=== PATIENT | female | born 1970 | race African-American/Black ===

== ENCOUNTER 2017-06-08 13:46 | Emergency (ER) | payer OTHER ==
--- NOTE | 2017-06-08 14:35 | ED Physician Documentation ---
PD HPI SKIN - Stated complaint Stated Complaint: R ARM PX - Chief complaint Chief Complaint: Ext Problem - History obtained from History obtained from: Patient - History of Present Illness Timing - onset: How many months ago (2) Timing - duration: Months (2had flu shot in right deltoid area end March and has had pain in the area since that time. No drainage. It has gotten worse the past week or so.) Timing - details: Gradual onset, Still present, Waxing and waning Location: RUE (lateral deltoid) Quality / character: Painful, Other (warmth). No: Discolored, Swelling, Draining Associated symptoms: Myalgias. No: Fever Contributing factors: Other (got flu shot in that spot with onset symptoms next few days and has persisted.) Similar symptoms before: Diagnosis, Has not had sx before Recently seen: Not recently seen Review of Systems Constitutional: reports: Myalgias. denies: Fever, Chills Nose: denies: Rhinorrhea / runny nose, Congestion Throat: denies: Sore throat Respiratory: denies: Cough GI: denies: Nausea, Vomiting, Diarrhea : denies: Dysuria, Frequency Endocrine: denies: Weight loss Immunocompromised: denies: Immunocompromised PD PAST MEDICAL HISTORY - Past Medical History Past Medical History: No Endocrine/Autoimmune: None - Past Surgical History Past Surgical History: No - Present Medications Home Medications: Ambulatory Orders Medication Instructions Recorded Confirmed Cephalexin [Keflex] 500 mg PO TID #21 capsule 06/08/17 Dexamethasone [Decadron] 4 mg PO DAILY #5 tablet 06/08/17 Naproxen 375 mg PO BID #20 tablet 06/08/17 Tramadol HCl 50 mg PO Q6H PRN #15 tablet 06/08/17 - Allergies Allergies/Adverse Reactions: Allergies Allergy/AdvReac Type Severity Reaction Status Date / Time No Known Drug Allergies Allergy Verified 06/08/17 13:54 - Social History Does the pt smoke?: No Smoking Status: Never smoker Does the pt drink ETOH?: No Does the pt have substance abuse?: No - Immunizations Immunizations are current?: Yes PD ED PE NORMAL - Vitals Vital signs reviewed: Yes - General General: Alert and oriented X 3, No acute distress, Well developed/nourished - Neck Neck: Supple, no meningeal sign, No adenopathy - Cardiac Cardiac: RRR, No murmur - Respiratory Respiratory: Clear bilaterally - Abdomen Abdomen: Soft, Non tender, No organomegaly - Derm Derm: Normal color, Warm and dry - Extremities Extremities: Other (right lateral deltoid with area of warmth, but no noted redness. She has some firmness underneath. Bedside U/S did not show any pocket of fluid. Local inflammation noted. ) - Neuro Neuro: Alert and oriented X 3, No motor deficit, No sensory deficit, Normal speech Results - Vitals Vitals: Oxygen O2 Source Room air PD MEDICAL DECISION MAKING - ED course Complexity details: considered differential (prolonged time of pain after injection with warmth at the area but no redness. Bedside U/S showing some focal inflammation but no fluid collection to suggest abscess. ), d/w patient Departure - Departure Disposition: 01 Home, Self Care Clinical Impression: Muscle pain Injection site reaction Qualifiers: Encounter type: initial encounter Qualified Code(s): T80.90XA - Unspecified complication following infusion and therapeutic injection, initial encounter Condition: Stable Record reviewed to determine appropriate education?: Yes Follow-Up: [facility] [Provider Group] [facility] [Provider Group] Prescriptions: Cephalexin [Keflex] 500 mg PO TID #21 capsule Dexamethasone [Decadron] 4 mg PO DAILY #5 tablet Naproxen 375 mg PO BID #20 tablet Tramadol HCl 50 mg PO Q6H PRN #15 tablet PRN Reason: Pain Comments: There is some warmth and inflammation in the site of the injection. This may be just an irritation from the vaccine. However would be concern for some infection in the area. I do not see any abscess at this time. Treat with anti- inflammatory such as naproxen or ibuprofen twice daily. Add Decadron which is a another anti-inflammatory daily for 5 days. Cephalexin antibiotic as directed. Add Tylenol or tramadol if needed for pain. Recheck if not improved over the next 3-5 days and return sooner if worsening. Discharge Date/Time: 06/08/17 15:23
[2017-06-08] MEDS ORDERED: traMADol 50 MG TABLET PO STA (15:01)
[2017-06-08] MEDS ORDERED: cephALEXin 250 MG CAPSULE PO STA (15:01)
[2017-06-08 15:25] VITALS: BP 120/69
== END 2017-06-08 15:23 | disposition home or self-care (01) ==
LOC: ED 13:46
DX: M79.1 Myalgia (principal); T88.1XXA Other complications following immunization, not elsewhere classified, initial encounter
CPT/HCPCS: 99283; A9270

== ENCOUNTER 2019-04-16 18:04 | Emergency (ER) | payer OTHER ==
[2019-04-16 18:22] VITALS: BP 145/75
--- NOTE | 2019-04-16 19:13 | ED Physician Documentation ---
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 Patient also speaks limited japanese. This is a 48-year-old female who presents with a nose laceration. She was lifting a sofa and it fell downwards hitting her nose, she had a small amount of bleeding from it, and immediately after the accident she felt slightly lightheaded for a few moments. She did not pass out, did not lose consciousness, denies any headache at this time. She is able to breathe her nose and there is no bleeding from it. Review of Systems Eyes: denies: Loss of vision Throat: denies: Dental pain / toothache Skin: reports: Abrasion (s) Neurologic: denies: LOC PD PAST MEDICAL HISTORY - Past Medical History Endocrine/Autoimmune: None - Past Surgical History Past Surgical History: No - Present Medications Home Medications: Ambulatory Orders Medication Instructions Recorded Confirmed Cephalexin [Keflex] 500 mg PO TID #21 capsule 06/08/17 Naproxen 375 mg PO BID #20 tablet 06/08/17 Tramadol HCl 50 mg PO Q6H PRN #15 tablet 06/08/17 dexAMETHasone [Decadron] 4 mg PO DAILY #5 tablet 06/08/17 - Allergies Allergies/Adverse Reactions: Allergies Allergy/AdvReac Type Severity Reaction Status Date / Time No Known Drug Allergies Allergy Verified 04/16/19 18:17 - Social History Does the pt smoke?: No Smoking Status: Never smoker Does the pt drink ETOH?: No Does the pt have substance abuse?: No - Immunizations Immunizations are current?: Yes PD ED PE NORMAL - General General: Alert and oriented X 3 - HEENT HEENT: Other (Very superficial 5 mm abrasion to the bridge of the nose, with no significant swelling, very mild tenderness, no crepitus, no deformity.) - Cardiac Cardiac: RRR - Respiratory Respiratory: No respiratory distress, Clear bilaterally - Extremities Extremities: No deformity, No tenderness to palpate - Neuro Neuro: Alert and oriented X 3, No motor deficit, No sensory deficit, Normal speech Results - Vitals Vitals: Vital Signs - 24 hr 04/16/19 18:13 Temperature 36.7 C Heart Rate 72 Respiratory 17 Rate Blood Pressure 145/75 H O2 Saturation 99 Oxygen O2 Source Room air PD MEDICAL DECISION MAKING - ED course Complexity details: considered differential (fracture, abrasion, contusion, concussion) ED course: Pt presents after minor trauma to her nose. She has a very superficial abrasion that does not require any repair. Her nose is only very mildly tender, without significant edema and without deformity. Remainder of the face and head are atraumatic. I discussed that even if she has a small nasal bone fracture management would be supportive unless she has breathing issues or deformity on healing. She may follow with Dr. Franco if needed, though given the appearance of her nose at this time I highly doubt she will need any follow up, it is near- normal in appearance. No head CT needed by [facility] head CT rules. supportive care and return precautions discussed and patient was discharged home. Departure - Departure Disposition: 01 Home, Self Care Clinical Impression: Abrasion Nose injury Qualifiers: Encounter type: initial encounter Qualified Code(s): S09.92XA - Unspecified injury of nose, initial encounter Condition: Good Follow-Up: Florin Franco DDS [Provider Admit Priv/Credential] - (If needed if your nose continues to bother you or appears crooked after healing.) Comments: You have a small cut to your nose. Your nose is bruised, I doubt that it is broken, but if it is broken it appears very minor and will likely heal without any problems. If your nose appears crooked to you or you are having issues with breathing after it heals, please follow-up with Dr. Franco. You may take 650 mg of Tylenol and 600 mg of ibuprofen every 6 hours as needed for pain. You may also ice the nose Discharge Date/Time: 04/16/19 19:28
[2019-04-16] MEDS ORDERED: ACETAMINOPHEN 325 MG TABLET PO STA (19:20)
[2019-04-16] MEDS ORDERED: IBUPROFEN 600 MG TABLET PO STA (19:20)
== END 2019-04-16 19:28 | disposition home or self-care (01) ==
LOC: ED 18:04
DX: S00.31XA Abrasion of nose, initial encounter (principal); W22.8XXA Striking against or struck by other objects, initial encounter; Y93.89 Activity, other specified
CPT/HCPCS: 1040M; 99282; A9270